=== PATIENT | female | born 1940 | race Caucasian/White ===

== ENCOUNTER → 2019-07-17 | Outpatient (CLI) | payer BC | END | disposition home or self-care (01) | LOC: CFH 06:48 | PROVIDERS: ATTEND Internal Medicine Cardiovascular Disease | DX: I08.3 Combined rheumatic disorders of mitral, aortic and tricuspid valves (principal); I20.9 Angina pectoris, unspecified | CPT/HCPCS: 78452; 93017; 93306; A9502 ==